=== PATIENT | male | born 1990 | race African-American/Black ===

== ENCOUNTER 2021-10-13 13:08 | Outpatient (CLI) | payer OTHER, SELFPAY ==
--- NOTE | ~2021-10-13 | MR_ITS ---
EXAMINATION: MR knee RT wo con DATE: 10/13/2021 14:18 INDICATION: Right knee pain and instability with rapid change since direction. TECHNIQUE: Magnetic resonance imaging (MRI) of the right knee was performed without intravenous contr ast. Sequences included coronal PD-weighted FSE, coronal PD-weighted FS FSE, sagittal T2-weighted FS E, sagittal PD-weighted FS FSE and axial PD weighted fat saturated FSE. COMPARISON: None. FINDINGS: Medial compartment: Medial meniscus is normal. Articular cartilage is normal. Lateral compartment: Medially displaced bucket-handle tear of the lateral meniscus which extends anteroposteriorly in the intercondylar notch overlying the lateral side of the intercondylar eminence. There is essentially no residual nondisplaced meniscal tissue at the junction of the body and posterior horn. Small amount o f residual nondisplaced irregular frayed meniscal tissue is seen at the meniscal body and posterior h orn. Partial-thickness chondral ulceration along the anterior to central weightbearing lateral femora l condyle with underlying small flat central subchondral osteophytes anteriorly and small focus of mi ld increased subcortical marrow signal at the posterior margin of the region of chondral ulceration. Additional tiny focus of increased subarticular signal underlying the anterior aspect of the lateral tibial plateau with there is mild partial-thickness cartilage loss. Patellofemoral compartment: Articular cartilage is normal. Ligaments and tendons: Complete tear of the anterior cruciate ligament. The posterior cruciate ligament is normal. The media l collateral ligament and fibular collateral ligament complex are normal. The extensor mechanism is n ormal. The visualized medial and lateral hamstring tendons as well as the iliotibial band are normal. Fluid: Physiologic amount of fluid in the joint space. No loose osteochondral bodies identified. Osseous/other: Slight genu recurvatum. Low signal intensity bone island at the lateral aspect of the medial tibial p lateau. No fracture or pathologic marrow replacing process. IMPRESSION: 1. Complete tear of the anterior cruciate ligament. 2. Medially displaced bucket-handle tear of the lateral meniscus which involves the majority of the m eniscal tissue of the body and posterior horn. 3. 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 Reviewed, dictated and finalized at location B. LIGHT ADJUSTER IMPRESSION: 1. Complete tear of the anterior cruciate ligament. 2. Medially displaced bucket-handle tear of the lateral meniscus which involves the majority of the meniscal tissue of the body and posterior horn. 3. 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
== END 2021-10-13 13:09 | disposition home or self-care (01) ==
LOC: ANHIMG 13:12
PROVIDERS: Visit Provider Physician Assistant
DX: M17.11 Unilateral primary osteoarthritis, right knee (principal); S83.281A Other tear of lateral meniscus, current injury, right knee, initial encounter; S83.511A Sprain of anterior cruciate ligament of right knee, initial encounter; X58.XXXA Exposure to other specified factors, initial encounter
CPT/HCPCS: 73721

== ENCOUNTER 2023-07-30 11:50 | Emergency (ER) | payer OTHER, SELFPAY ==
[2023-07-30 12:14] VITALS: BP 114/70; PULSE 61; RESP 14; TEMP 37.2; O2SAT 100
--- NOTE | 2023-07-30 13:11 | ED.URI ---
HPI - URI/Sore Throat General Chief Complaint: Upper Respiratory Infection Stated Complaint: sore throat Time Seen by Provider: 07/30/23 13:02 Source: patient, RN notes reviewed and old records reviewed Mode of arrival: ambulatory Limitations: no limitations History of Present Illness HPI Narrative: 33-year-old male presents to [facility] with complaints of sore throat this morning no known fevers no sinus drainage or any ear pain or any cough noted. Patient reports that his throat is sore especially with swallowing,rates his pain 8/10, has not taken any OTC medications for his complaints. Patient reports no known ill contacts. MD elicited complaint: sore throat Onset (ago): day(s) (1 day of symptoms) Pain scale (0-10): 8 Able to tolerate fluids by mouth: Yes Exacerbating factors: swallowing Treatments prior to arrival: none Related Data Home Medications Medication Instructions Recorded Confirmed paliperidone palm (3 month) 546 546 mg IM [id number] 07/30/23 07/30/23 mg/1.75 mL intramuscular syringe (Invega Trinza) Allergies Allergy/AdvReac Type Severity Reaction Status Date / Time No Known Allergies Allergy Verified 07/30/23 12:16 Review of Systems Review of Systems: CONSTITUTIONAL: Denies malaise, chills, sweats, or fever. EYES: Denies visual changes, redness, or discharge. ENT: Reports scant rhinorrhea, congestion, no sinus pain,no otalgia, positive sore throat. CARDIOVASCULAR: Denies chest pain, palpitations, or edema. RESPIRATORY: Reports no cough.? Denies dyspnea. GASTROINTESTINAL: Denies abdominal pain, nausea, vomiting, diarrhea SKIN: Denies rash or itching. MUSCULOSKELETAL: Denies myalgia. NEUROLOGIC: Denies headache. All systems reviewed & are unremarkable except as noted in HPI and below PMFSH Past Medical History Medical History (Updated 07/31/23 @ 08:41 by Beatriz Bautista NP) Schizophrenia Surgical History Surgical History (Updated 07/31/23 @ 08:42 by Beatriz Bautista NP) H/O knee surgery right H/O umbilical hernia repair Social History Social History (Updated 07/31/23 @ 08:43 by Beatriz Bautista NP) Smoking status: Never smoker Alcohol intake: current Alcohol use details: rare Substance use type: does not use Living arrangements: with family Gender identity (if verbalized by the patient): Male Comments At time of signature, agree with nursing past medical, surgical, social and family history. There is no relevant family history pertinent to the presenting complaint Exam Narrative: GENERAL: Well-appearing, well-nourished, and in no acute distress. HEAD: Normocephalic EYES: PERRLA, conjunctivae clear ENT: Nares clear, turbinates edematous and erythematous, clear discharge. Mucous membranes moist. TM pearly reardon with dull light reflex bilaterally; no tragal tenderness. Oropharynx erythematous without lesions. Tonsils red enlarged and with white exudate, no drooling, no hoarseness, no trismus, uvula midline.painful swallowing NECK: Supple. lymphadenopathy CHEST: Clear to auscultation, breath sounds equal. No wheezing, rhonchi, rales, or stridor. No respiratory distress, speaks in full sentences.SAO2 100% on room air HEART: Regular rate and rhythm. No murmur heard. SKIN: Warm, dry, no rash. NEURO: Alert and oriented x3. PSYCH: Normal mood and affect Course Course Emergency Course: Patient is aware of diagnosis, understands and agrees to treatment plan.? Anticipatory guidance given.? Patient agrees to follow-up as directed and is aware of reasons to seek care at the emergency department. Portions of this record may have been created with voice recognition software Level of Care: Express Care Visit Vital Signs Vital signs: Vital Signs Temperature 37.2 C 07/30/23 12:14 Pulse Rate 61 07/30/23 12:14 Respiratory Rate 14 07/30/23 12:14 Blood Pressure 114/70 07/30/23 12:14 Pulse Oximetry 100 07/09
== END 2023-07-30 13:22 | disposition home or self-care (01) ==
PROVIDERS: Emergency Provider Registered Nurse; PCP Physician Assistant
DX: J02.0 Streptococcal pharyngitis (principal); Z20.822 Contact with and (suspected) exposure to COVID-19
CPT/HCPCS: 87426; 87804; 87880; 99213; C9803; G0463

== ENCOUNTER 2024-06-20 08:40 | Emergency (ER) | payer OTHER, SELFPAY ==
--- NOTE | 2024-06-20 08:50 | ED.NAVMDI ---
HPI - Nausea/Vomiting/Diarrhea General Chief complaint: Nausea/Vomiting/Diarrhea Stated complaint: Diarrhea/Nausea Time Seen by Provider: 06/20/24 08:55 Source: patient Mode of arrival: ambulatory Limitations: no limitations History of Present Illness HPI Narrative: Golden is a 34-year-old male patient presenting to the clinic today with complaints of diarrhea and nausea that occurred yesterday. He reports that his symptoms have resolved and he is not had any nausea, vomiting, or diarrhea today. He is requesting a work note for missing last night. He denies any other concerns Related Data Home Medications Medication Instructions Recorded Confirmed paliperidone palm (3 month) 546 546 mg IM [id number] 07/30/23 06/20/24 mg/1.75 mL intramuscular syringe (Invega Trinza) Allergies Allergy/AdvReac Type Severity Reaction Status Date / Time No Known Allergies Allergy Verified 06/20/24 08:52 Review of Systems Review of Systems: Pertinent positives per HPI. Patient denies any fever, chills, rash, headache, visual changes, dizziness, cough, runny nose, sore throat, shortness of breath, chest pain, palpitations, vomiting, constipation, abdominal pain, or any urinary issues. [facility] Past Medical History Medical History (Updated 06/20/24 @ 09:05 by Darian Luo APRN) Schizophrenia Surgical History Surgical History (Updated 07/31/23 @ 08:42 by Beatriz Bautista NP) H/O knee surgery right H/O umbilical hernia repair Social History Social History (Updated 07/31/23 @ 08:43 by Beatriz Bautista NP) Smoking status: Never smoker Alcohol intake: current Alcohol use details: rare Substance use type: does not use Living arrangements: with family Gender identity (if verbalized by the patient): Male Comments At the time of my signature, I reviewed and agree with the nursing past medical, surgical, social, and family history. There is no relevant family history pertinent to the patient complaint. Course Course Emergency Course: Portions of this record may have been created with voice recognition software. Level of Care: Express Care Visit Vital Signs Vital signs: Vital signs reviewed MDM - Nausea/Vomiting/Diarrhea MDM Narrative Medical decision making narrative: At the time of visit patient is resting comfortably on the exam table. Patient appears to be nontoxic. Plan: I suspect patient has gastroenteritis-resolved. Work note was given. Supportive measures were discussed with the patient and they voiced understanding discharge instructions and agrees to treatment plan. Return precautions reviewed Differential Diagnosis Differential diagnosis: Likely traveler's diarrhea, food poisoning and gastroenteritis Discharge Plan Discharge Clinical Impression: Gastroenteritis Patient Disposition: Home, Self-Care Condition: Stable Instructions: Antibiotic Form, Gastroenteritis (ED) Additional Instructions: Increase fluids and stay well hydrated Eat a bland diet Follow-up with your primary care doctor as needed Prescriptions: No Action Invega Trinza 546 mg/1.75 mL syringe 546 mg IM [id number] Follow-up/Referrals: Parent,OKSANA Camacho [Primary Care Provider] - Stand Alone Forms: Work/School Release IP Time of Disposition: 09:02 Quality NIHSS Nursing Documentation ED NIHSS nursing documentation: reviewed/agree
[2024-06-20 08:51] VITALS: BP 106/59; PULSE 55; RESP 16; TEMP 36.4; O2SAT 100
== END 2024-06-20 09:09 | disposition home or self-care (01) ==
PROVIDERS: Emergency Provider Nurse Practitioner Family; PCP Physician Assistant
DX: K52.9 Noninfective gastroenteritis and colitis, unspecified (principal)
CPT/HCPCS: 99211; G0463